=== PATIENT | male | born 1965 | race Caucasian/White ===

== ENCOUNTER 2018-07-11 20:32 | Emergency (ER) | payer OTHER ==
[~2018-07-11] VITALS: Ht 180.3 cm; Wt 102.1 kg
[2018-07-11 21:51] LABS: ABSOLUTE EOSINOPHILS 0.1 thou/uL (0.0-0.7); ABSOLUTE LYMPHOCYTES 1.6 thou/uL (0.8-5.3); ABSOLUTE MONOCYTES 0.5 thou/uL (0.0-1.2); ABSOLUTE NEUTROPHILS 2.7 thou/uL (1.6-8.1); BASOPHILS 0.6 %; EOSINOPHILS 2.4 %; HEMATOCRIT 44.3 % (42.0-52.0); HEMOGLOBIN 15.5 gm/dL (14.0-18.0); MCH 33.1 pg (26.0-34.0); MCHC 34.9 g/dL (28.0-37.0); MCV 94.7 fL (80.0-100.0); MONOCYTES 9.6 %; MPV 7.5 fl. (7.2-11.1); NUCLEATED RBCS 0 /100WBC; PLATELET COUNT* 171 thou/uL (150-400); POLYS 54.4 %; RBC 4.68 mil/uL (4.50-6.00); RDW-CV 13.2 % (10.5-14.5); WBC 4.9 thou/uL (4.0-11.0)
[2018-07-11 22:00] LABS: ANION GAP 6 mmol/L (7-16); BUN 15 mg/dL (7-18); CHLORIDE 100 mmol/L (98-107); CO2 33 mmol/L (21-32); GLUCOSE 152 mg/dL (70-99); POTASSIUM 3.7 mmol/L (3.5-5.1); SODIUM 139 mmol/L (136-145)
[2018-07-11 22:02] LABS: APTT 25.9 Seconds (25.0-31.3); PROTIME 10.4 Seconds (9.20-11.50)
[2018-07-11 22:06] LABS: ALKALINE PHOSPHATASE 49 U/L (46-116); SGOT 19 U/L (15-37); SGPT 36 U/L (30-65); TOTAL BILIRUBIN 0.9 mg/dL (<0.1-1.0); TOTAL PROTEIN 7.5 g/dL (6.4-8.2); TROPONIN-I LEVEL <0.06 ng/mL (<0.06)
[2018-07-11 22:37] VITALS: BP 130/90
--- NOTE | 2018-07-12 15:34 | EKG ---
[place] [address] ELECTROCARDIOGRAM REPORT Name: VENANCIO RAMEY Room: [facility]#: [id number] Admission: 07/11/18 Attend Phys: Discharge: 07/11/18 Date of : 69 Report #: [id number] THIS REPORT FOR: //name// [facility] ED Test Date: 2018-07-11 Test Time: 21:53:07 Pat Name: VENANCIO RAMEY Department: Room: Gender: M Assembled [employer] Repairer: Deborah DOSS : 1965 Requested By: Vishal Ferguson Order Number: [id number] MD: Christiano Ann Measurements Intervals [place] Rate: 79 P: 22 MO: 189 QRS: -19 QRSD: 99 T: 32 QT: 358 QTc: 411 Interpretive Statements Sinus rhythm Borderline left axis deviation Possible anteroseptal infarct, old Baseline wander in lead(s) V2 No previous ECG available for comparison Electronically Signed On 07-12-2018 15:34:35 ENTRY SPECIALIST by Christiano Ann [email or web address] <ELECTRONICALLY SIGNED> By: Christiano Ann MD, [facility] 07/12/18 1534 [id number] 52 Christiano Ann MD, FACC /EPI
== END 2018-07-11 22:39 | disposition still patient (30) ==
LOC: M.ERS 20:32
PROVIDERS: Emergency Medicine Emergency Medical Services
DX: S06.6X9A Traumatic subarachnoid hemorrhage with loss of consciousness of unspecified duration, initial encounter (principal); S06.5X9A Traumatic subdural hemorrhage with loss of consciousness of unspecified duration, initial encounter; W00.0XXA Fall on same level due to ice and snow, initial encounter; Y93.89 Activity, other specified; Y92.481 Parking lot as the place of occurrence of the external cause; Y99.8 Other external cause status